=== PATIENT | female | born 1975 | race Caucasian/White ===

== ENCOUNTER → 2018-02-09 | Outpatient (CLI) | payer BC | LOC: GMAM 10:35 | PROVIDERS: ATTEND Family Medicine | DX: F51.01 Primary insomnia (principal); D53.2 Scorbutic anemia ==

== ENCOUNTER → 2019-08-29 | Outpatient (CLI) | payer BC | LOC: GMAM 10:34 | PROVIDERS: ATTEND Family Medicine | DX: R53.83 Other fatigue (principal) ==